=== PATIENT | male | born 1995 | race Caucasian/White ===

== ENCOUNTER 2016-12-02 16:07 | Emergency (ER) | payer BC ==
--- NOTE | 2016-12-02 16:31 | EDPHY ---
H & P Stated Complaint: States BRB in stool ~10 days Time Seen by Provider: 12/02/16 16:14 HPI/ROS: CHIEF COMPLAINT: Painless hematochezia HISTORY OF PRESENT ILLNESS: The patient presents to the ED with a 10 day history of painless hematochezia. The patient reports his symptoms began after a particularly hard bowel movement. The patient reportedly was recently diagnosed with hepatitis C and is scheduled to follow up with Gastroenterology. The patient reportedly acquired hepatitis-C from unprotected intercourse with a female leadite man. The patient denies additional rectal trauma or foreign body. The patient denies NSAID usage. The patient denies prior history of GI bleed. REVIEW OF SYSTEMS: A comprehensive 10 point review of systems is otherwise negative aside from elements mentioned in the history of present illness. Source: Patient Exam Limitations: No limitations - Personal History Current Tetanus Diphtheria and Acellular Pertussis (TDAP): Yes - Medical/Surgical History Other PMH: Hepatitis-C - Family History Significant Family History: No pertinent family hx - Social History Smoking Status: Never smoked - Physical Exam Exam: General Appearance: Alert, no distress Eyes: Pupils equal and round no pallor or injection ENT, Mouth: Mucous membranes moist Respiratory: There are no retractions, lungs are clear to auscultation Cardiovascular: Regular rate and rhythm Gastrointestinal: Abdomen is soft and nontender, no masses, bowel sounds normal Rectal: Bright red blood per rectum noted on digital rectal exam, no obvious source appreciated Neurological: A&O, normal motor function, normal sensory exam, normal cranial nerves Skin: Warm and dry, no rashes Musculoskeletal: Neck is supple nontender Extremities: symmetrical, full range of motion Constitutional: Initial Vital Signs Temperature (C) 36.7 C 12/02/16 16:08 Heart Rate 108 H 12/02/16 16:08 Respiratory Rate 18 12/02/16 16:08 Blood Pressure 115/98 H 12/02/16 16:08 O2 Sat (%) 97 12/02/16 16:08 O2 Delivery Mode Room Air Allergies/Adverse Reactions: No Known Allergies Allergy (Unverified 12/02/16 16:14) Home Medications: Medication Instructions Recorded NK [No Known Home Meds] 12/02/16 Medical Decision Making ED Course/Re-evaluation: The patient presents to the ED with painless hematochezia for the past 10 days. I see no obvious source of bleeding on examination however his hematocrit is stable. The patient does have a history of recently being diagnosed with hepatitis-C and has plans to follow up with Gastroenterology in the next several weeks. 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 The patient will be instructed to return to the ED for severe abdominal pain, heavy bleeding, lightheadedness or other concerns. Differential Diagnosis: Differential diagnosis considered includes upper GI bleed, lower GI bleed, bleeding external hemorrhoid, anal fissure - Data Points Laboratory Results: Laboratory Results 12/02/16 16:35 12/02/16 16:35 12/02/16 16:35 WBC 8.20 10^3/uL (3.80-9.50) RBC 4.98 10^6/uL (4.40-6.38) Hgb 14.7 g/dL (13.7-17.5) Hct 43.3 % (40.0-51.0) MCV 86.9 fL (81.5-99.8) MCH 29.5 pg (27.9-34.1) MCHC 33.9 g/dL (32.4-36.7) RDW 12.6 % (11.5-15.2) Plt Count 290 10^3/uL (150-400) MPV 9.4 fL (8.7-11.7) Neut % (Auto) 53.7 % (39.3-74.2) Lymph % (Auto) 30.5 % (15.0-45.0) Alfalfa % (Auto) 8.0 % (4.5-13.0) Eos % (Auto) 6.5 % (0.6-7.6) Baso % (Auto) 1.1 % (0.3-1.7) Nucleat RBC Rel Count 0.0 % (0.0-0.2) Absolute Neuts (auto) 4.40 10^3/uL (1.70-6.50) Absolute Lymphs (auto) 2.50 10^3/uL (1.00-3.00) Absolute Monos (auto) 0.66 10^3/uL (0.30-0.80) Absolute Eos (auto) 0.53 H 10^3/uL (0.03-0.40) Absolute Basos (auto) 0.09 10^3/uL (0.02-0.10) Absolute Nucleated RBC 0.00 10^3/uL (0-0.01) Immature Gran % 0.2 % (0.0-1.1) Immature Gran # 0.02 10^3/uL (0.00-0.10) Sodium 140 mEq/L (134-144) Potassium 4.5 mEq/L (3.5-5.2) Chloride 101 mEq/L (97-110) Carbon Dioxide 28 mEq/l (22-31) Anion Gap 11 mEq/L (8-16) BUN 16 mg/dL (7-23) Creatinine 0.9 mg/dL (0.7-1.3) Estimated GFR > 60 Glucose 106 H mg/dL (70-100) Calcium 9.6 mg/dL (8.5-10.4) Total Bilirubin 0.8 mg/dL (0.1-1.4) Conjugated Bilirubin 0.4 mg/dL (0.0-0.5) Unconjugated Bilirubin 0.4 mg/dL (0.0-1.1) AST 71 H IU/L (17-59) ALT 116 H IU/L (21-72) Alkaline Phosphatase 59 IU/L (38-126) Total Protein 8.1 g/dL (6.3-8.2) Albumin 4.5 g/dL (3.5-5.0) Lipase 48.0 IU/L (23-300) Departure - Departure Disposition: Home, Routine, Self-Care Clinical Impression: Hematochezia Condition: Good Instructions: Gastrointestinal Bleeding (ED) Additional Instructions: 1. Please return to the ED for markedly worsening symptoms, lightheadedness or other concerns. 2. Please contact your [employer] [address] [employer] [address] Ann tomorrow to schedule a follow-up visit this week for evaluation of your rectal bleeding and to follow up on the results of your hepatitis testing. Referrals: Ramiro Mckeon [Medical Doctor] - As per Instructions
[2016-12-02 16:52] LABS: % IMMATURE GRANULYOCYTES 0.2 % (0.0-1.1); ABSOLUTE IMMATURE GRANULOCYTES 0.02 10^3/uL (0.00-0.10); ADD DIFF? NO; ADD MORPH? NO; ADD SCAN? NO; ATYPICAL LYMPHOCYTE FLAG 0 (0-99); FRAGMENT RBC FLAG 0 (0-99); HEMATOCRIT 43.3 % (40.0-51.0); HEMOGLOBIN 14.7 g/dL (13.7-17.5); LEFT SHIFT FLG 0 (0-99); LIPEMIA HEMOLYSIS FLAG 90 (0-99); MEAN CELL HEMOGLOBIN 29.5 pg (27.9-34.1); MEAN CELL HEMOGLOBIN CONCENTR. 33.9 g/dL (32.4-36.7); MEAN CELL VOLUME 86.9 fL (81.5-99.8); MEAN PLATELET VOLUME 9.4 fL (8.7-11.7); PLATELET CLUMPS FLAG 0 (0-99); PLATELET COUNT 290 10^3/uL (150-400); RED BLOOD CELL COUNT 4.98 10^6/uL (4.40-6.38); RED CELL DISTRIBUTION WIDTH 12.6 % (11.5-15.2)
[2016-12-02 17:00] LABS: ALANINE AMINOTRANSFERASE 116 IU/L (21-72); ALBUMIN 4.5 g/dL (3.5-5.0); ALKALINE PHOSPHATASE 59 IU/L (38-126); ANION GAP 11 mEq/L (8-16); ASPARTATE AMINOTRANSFERASE 71 IU/L (17-59); BILIRUBIN,TOTAL 0.8 mg/dL (0.1-1.4); BILIRUBIN-CONJUGATED 0.4 mg/dL (0.0-0.5); BILIRUBIN-UNCONJUGATED 0.4 mg/dL (0.0-1.1); CALCIUM 9.6 mg/dL (8.5-10.4); CARBON DIOXIDE 28 mEq/l (22-31); CHLORIDE 101 mEq/L (97-110); CREATININE 0.9 mg/dL (0.7-1.3); GLOMERULAR FILTRATION RATE > 60; GLUCOSE 106 mg/dL (70-100); POTASSIUM 4.5 mEq/L (3.5-5.2); SODIUM 140 mEq/L (134-144); TOTAL PROTEIN 8.1 g/dL (6.3-8.2)
[2016-12-02 17:34] VITALS: BP 108/67; PULSE 96; RESP 16; TEMP 97.9; O2SAT 94
== END 2016-12-02 17:34 | disposition home or self-care (01) ==
DX: K92.1 Melena (principal)

== ENCOUNTER 2017-09-01 11:52 | Emergency (ER) | payer BC ==
[2017-09-01 12:02] VITALS: O2SAT 96
--- NOTE | 2017-09-01 14:07 | EDPHY ---
H & P Stated Complaint: COUGH/FEVER X 3 DAYS HPI/ROS: Chief complaint: Cold symptoms History of present illness: This is a 22-year-old male who presents to the emergency department for cold symptoms. He reports he has been sick for the least the last 3 days. Reports sore throat, runny nose, nasal congestion, chest congestion and cough. He has use [id number] cold medications with minimal affect. Denies other associated signs or symptoms including no current fevers, no trouble breathing, no rash. - Personal History Current Tetanus/Diphtheria Vaccine: Yes - Medical/Surgical History Hx Asthma: No Hx Chronic Respiratory Disease: No Hx Diabetes: No Hx Cardiac Disease: No Hx Renal Disease: No Hx Cirrhosis: No Hx Alcoholism: No Hx HIV/AIDS: No Hx Splenectomy or Spleen Trauma: No Other PMH: Hepatitis-C - Social History Smoking Status: Never smoked - Physical Exam Exam: General Appearance: Alert and no distress. Eyes: Pupils equal and round no injection. ENT: Tympanic membranes, external auditory canals, external ears and surrounding soft tissue including over the mastoids are unremarkable. Nasopharynx is not injected. There is no rhinorrhea. Oropharynx is mildly injected. There is no edema. There is no exudate. There is no asymmetry. The uvula is midline. No elevation of the tongue. There is no hoarseness, no drooling, no trismus, no stridor. Respiratory: Chest is non tender, lungs are clear to auscultation. Cardiac: regular rate and rhythm Musculoskeletal: Neck is supple and non tender. Extremities have full range of motion and are non tender. Skin: No rashes or lesions. Neurological: Alert and oriented x4. Strength and sensation intact and symmetrical. No meningismus. Constitutional: Initial Vital Signs Temperature (C) 37.6 C 09/01/17 11:58 Heart Rate 94 09/01/17 11:58 Respiratory Rate 18 09/01/17 11:58 Blood Pressure 114/88 H 09/01/17 11:58 O2 Sat (%) 96 09/01/17 11:58 O2 Delivery Mode Room Air Allergies/Adverse Reactions: No Known Allergies Allergy (Verified 09/01/17 11:57) Home Medications: Medication Instructions Recorded Codeine Phosphate/Guaifenesin 10 ml PO Q6 #120 ml 09/01/17 [Codeine-Guaifen 10-100 mg/5 ml] Medical Decision Making - Diagnostics Imaging: I viewed and interpreted images myself ED Course/Re-evaluation: Patient seen under the supervision of my secondary supervising physician Dr. Lakeshia Canada. Patient presents to the emergency department for evaluation of cold symptoms. On presentation he is nontoxic. Afebrile and vital signs are stable. Physical exam is largely unremarkable. Strep is negative. Chest x-ray is negative. Likely acute bronchitis. Antibiotics not indicated as this is likely viral. Symptomatic care is discussed with the patient. He is to follow up with a primary care doctor for recheck. Return precautions are given. Patient voiced understanding and agreement with plan. Differential Diagnosis: Included but not limited to pharyngitis, strep pharyngitis, tonsillitis, sinusitis, bronchitis, pneumonia, influenza although this was not tested for as patient be outside treatment range Departure - Departure Disposition: Home, Routine, Self-Care Clinical Impression: Acute bronchitis Qualifiers: Bronchitis organism: unspecified organism Qualified Code(s): J20.9 - Acute bronchitis, unspecified Condition: Good Instructions: Acute Bronchitis (ED) Additional Instructions: Follow-up with primary care doctor for recheck Use ibuprofen 600 mg 3 times a day for the next 2-3 days for pain Please note precautions on cough medication which can be sedating If symptoms worsen or new symptoms develop return to the emergency room for recheck Referrals: NONE *PRIMARY CARE P,. [Primary Care Provider] - As per Instructions [facility],. [Clinic] - As per Instructions Prescriptions: Codeine Phosphate/Guaifenesin [Codeine-Guaifen 10-100 mg/5 ml] 10 ml PO Q6 #120 ml
[2017-09-01 14:20] VITALS: BP 117/76; PULSE 98; RESP 16; TEMP 99.9
== END 2017-09-01 14:18 | disposition home or self-care (01) ==
DX: J20.9 Acute bronchitis, unspecified (principal)